=== PATIENT | female | born 2000 | race Native Hawaiian/Other Pacific Islander ===

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

== ENCOUNTER 2022-04-30 22:29 | Emergency (ER) | payer OTHER ==
[~2022-04-30] VITALS: Ht 170.2 cm; Wt 61.2 kg
[2022-05-01 00:02] VITALS: BP 113/56
== END 2022-05-01 00:10 | disposition home or self-care (01) ==
LOC: ED 22:29
DX: L02.01 Cutaneous abscess of face (principal); Z3A.26 26 weeks gestation of pregnancy
CPT/HCPCS: 96372; 99283; J0696

== ENCOUNTER 2022-08-16 04:24 | Emergency (ER) | payer OTHER ==
[~2022-08-16] VITALS: Ht 170.2 cm; Wt 61.2 kg
[2022-08-16 04:30] VITALS: BP 122/76; TEMP 98.5
== END 2022-08-16 05:33 | disposition home or self-care (01) ==
LOC: ED 04:24
DX: J02.8 Acute pharyngitis due to other specified organisms (principal); F17.290 Nicotine dependence, other tobacco product, uncomplicated
CPT/HCPCS: 87651; 99282

== ENCOUNTER 2022-08-23 12:03 | Emergency (ER) | payer OTHER ==
[~2022-08-23] VITALS: Ht 170.2 cm; Wt 59.4 kg
[2022-08-23 12:05] VITALS: BP 114/65; TEMP 98.7
== END 2022-08-23 12:29 | disposition home or self-care (01) ==
LOC: ED 12:03
PROC: 089RXZZ Drainage of Left Lower Eyelid, External Approach (ICD-10-PCS; principal; 2022-08-23)
DX: H00.015 Hordeolum externum left lower eyelid (principal); L02.01 Cutaneous abscess of face
CPT/HCPCS: 99283

== ENCOUNTER 2022-08-24 00:06 | Emergency (ER) | payer OTHER ==
[~2022-08-24] VITALS: Ht 170.2 cm; Wt 59.4 kg
[2022-08-24 00:06] VITALS: TEMP 98
[2022-08-24 01:35] VITALS: BP 96/47
== END 2022-08-24 01:35 | disposition home or self-care (01) ==
LOC: ED 00:06
DX: R11.2 Nausea with vomiting, unspecified (principal)
CPT/HCPCS: 96365; 96375; 99284; J2060; J2550